=== PATIENT | male | born 1950 | race Caucasian/White ===

== ENCOUNTER 2021-03-22 16:13 | Inpatient (IN) ==
[2021-03-22] MEDS ORDERED: THIAMINE 200 MG/2 ML VIAL IV STA (17:19)
[2021-03-22] MEDS ORDERED: SODIUM CHLORIDE 0.9% 1,000 ML IV STA ×2 (17:19→20:00)
[2021-03-22 18:55] LABS: Basophils % 0.2 % (0.0-0.8); Hematocrit 38.6 VOL% (42.0-52.0); Immature Granulocytes % 3.1 %; Immature Granulocytes Absolute 0.33 #; Lymphocytes # 0.8 10*3/uL (1.4-4.0); Lymphocytes % 7.9 % (21.2-54.2); Mean Corpuscular HGB Conc 31.1 GM/DL (32-36); Mean Corpuscular Volume 98.5 FL (87-102); Monocytes % 9.2 % (1.7-12.7); NRBC # 0.08 10*3/uL; Neutrophils % 79.6 % (38.7-73.9); Platelet Count 226 T/CUMM (130-400); Red Blood Count 3.92 MC/CUMM (3.8-5.5); Red Cell Distribution Width 15.8 % (9.3-17.3); White Blood Count 10.6 T/CUMM (4-12)
[2021-03-22 19:30] LABS: Band Neutrophils 3 % (0-10); Lymphocytes 7 % (20-55); Metamyelocytes 1 %; Nucleated Red Blood Cells 1 (0-5); Segmented Neutrophils 84 % (50-85); Total Cells Counted 100
[2021-03-22 19:31] LABS: Polychromasia Few
[2021-03-22 19:33] LABS: Platelet Estimate Adequate
[2021-03-22 19:34] LABS: Albumin 1.8 G/DL (3.4-5.0); Bilirubin,Total 7.7 MG/DL (0.20-1.00); Calcium 7.9 MG/DL (8.5-10.1); Osmolality,Calculated 291.4 MOS/KG (273-304); Potassium 5.6 MMOL/L (3.5-5.1); Total Protein 6.9 G/DL (6.4-8.2)
[2021-03-22 19:35] LABS: Macrocytosis Slight
[2021-03-22 19:36] LABS: Burr Cells Slight
[2021-03-22] MEDS ORDERED: INSULIN REGULAR 100 UNIT/ML IV ONE (19:57)
[2021-03-22] MEDS ORDERED: DEXTROSE 50% 25 GM/50 ML VIAL IV STA (19:57)
[2021-03-22] MEDS ORDERED: CALCIUM GLUCONATE 1,000 MG in SODIUM CHLORIDE 0.9% 100 ML IV ONE (19:58)
[2021-03-22] MEDS ORDERED: DEXTROSE 5% 1,000 ML IV SCH (20:00)
[2021-03-22] MEDS ORDERED: DEXTROSE 50% 25 GM/50 ML SYRINGE IV STA (20:03)
[2021-03-22 20:26] LABS: Bilirubin,Urine Negative (Negative); Blood, Urine Large mg/dL (Negative); Glucose,Urine (UA) Negative (Negative); Ketones,Urine Negative (Negative); Nitrite,Urine Negative (Negative); Protein,Urine 100 MG/DL; Squamous Epithelial Cell,Urine Occasional /HPF (0-10); Urine Appearance CLOUDY (Clear); Urine Color Red (Yellow); Urine Specific Gravity 1.025 (1.001-1.035)
[2021-03-22] MEDS ORDERED: ACETAMINOPHEN 325 MG TABLET PO PRN (21:57)
[2021-03-22] MEDS ORDERED: DEXTROSE 50% 25 GM/50 ML SYRINGE IV PRN (21:57)
[2021-03-22] MEDS ORDERED: GLUCAGON 1 MG VIAL IM PRN (21:57)
[2021-03-22] MEDS ORDERED: hydrALAZINE 20 MG/1 ML VIAL IV PRN (21:57)
[2021-03-22] MEDS ORDERED: diphenhydrAMINE CAP 25 MG CAPSULE PO PRN (21:57)
[2021-03-22] MEDS ORDERED: ONDANSETRON 4 MG/2 ML VIAL IV PRN (21:57)
[2021-03-22] MEDS ORDERED: NICOTINE 21 MG/24 HR PATCH TRANSDERM PRN (21:57)
[2021-03-22] MEDS ORDERED: MORPHINE 2 MG/1 ML SYRINGE IM PRN (22:23)
[2021-03-22] MEDS: MORPHINE 10 MG/5 ML UDCUP PO PRN (23:54)
[2021-03-22] MEDS ORDERED: MORPHINE 10 MG/5 ML UDCUP PO ONE (23:58)
[2021-03-23] MEDS: MORPHINE 10 MG/5 ML UDCUP PO PRN (00:15)
[2021-03-23] MEDS: ALBUTEROL/IPRATROPIUM 3 ML NEB RESP TX SCH ×2 (01:00→07:52)
[2021-03-23] MEDS: LORazepam 2 MG/1 ML VIAL IM PRN ×2 (01:20→02:06)
[2021-03-23 06:30] LABS: Basophils # 0.1 10*3/uL (0.0-0.2); Basophils % 0.6 % (0.0-0.8); Eosinophils % 0.1 % (0.00-10.9); Hematocrit 36.2 VOL% (42.0-52.0); Hemoglobin 11.1 GM/DL (14.0-18.0); Immature Granulocytes % 5.8 %; Immature Granulocytes Absolute 0.84 #; Lymphocytes # 1.6 10*3/uL (1.4-4.0); Mean Corpuscular HGB Conc 30.7 GM/DL (32-36); Mean Corpuscular Volume 102.5 FL (87-102); Mean Platelet Volume 12.5 FL (9.6-12.0); Monocytes % 10.4 % (1.7-12.7); NRBC # 0.35 10*3/uL; Neutrophils % 72.1 % (38.7-73.9); Platelet Count 229 T/CUMM (130-400); Red Blood Count 3.53 MC/CUMM (3.8-5.5); Red Cell Distribution Width 16.4 % (9.3-17.3); White Blood Count 14.4 T/CUMM (4-12)
[2021-03-23 06:54] LABS: Calcium 7.4 MG/DL (8.5-10.1); Osmolality,Calculated 288.5 MOS/KG (273-304)
[2021-03-23 07:01] LABS: Band Neutrophils 1 % (0-10); Lymphocytes 5 % (20-55); Platelet Estimate Adequate; Segmented Neutrophils 83 % (50-85); Total Cells Counted 100
[2021-03-23 07:11] LABS: Potassium 6.6 MMOL/L (3.5-5.1)
[2021-03-23 08:11] VITALS: BP 63/18
== END 2021-03-23 09:11 | disposition expired | DRG 951 ==
LOC: N.ED 16:13 → N.EDINP 21:57 → N.TELES 23:21
PROVIDERS: ADMIT Internal Medicine; ATTEND Internal Medicine